=== PATIENT | female | born 1965 | race African-American/Black ===

== ENCOUNTER 2018-02-22 02:31 | Inpatient (IN) | payer BC, OTHER, SELFPAY ==
[2018-02-22 04:59] LABS: Anion Gap 18 mmol/L (10-20); BUN (Urea Nitrogen) 69 mg/dL (9.8-20.1); Calc. Creatinine Clearance 0 mL/min (70-130); Calcium 9.1 mg/dL (7.8-10.44); Carbon Dioxide 11 mmol/L (22-29); Chloride 111 mmol/L (98-107); Estimated GFR-MDRD 17; Glucose 133 mg/dL (70-105); Potassium 4.2 mmol/L (3.5-5.1); Sodium 136 mmol/L (136-145)
[2018-02-22] MEDS ORDERED: Sodium Chloride 0.9% 1,000 ML IV SCH (05:15)
[2018-02-22] MEDS ORDERED: Dextrose 50% Abboject 50 ML SYRINGE SLOW IVP PRN (05:25)
[2018-02-22] MEDS ORDERED: Dextrose 5% in Water 1,000 ML IV PRN (05:25)
--- NOTE | 2018-02-22 06:12 | HP ---
PRIMARY CARE PHYSICIAN: Dr. Piper Cho. HISTORY OF PRESENT ILLNESS: Patient is a very pleasant 52-year-old female who was transferred from [facility] for right leg pain and lower back pain. The patient has a history of cirrhosis of un known etiology. I do not have her medical records. 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 Patient told me that she went to [facility] urgent care where she was given ibuprofen and was discharged home. Patient stated that this happen ed about a week or week and a half ago. The patient comes in today with worsening pain to her lower back. The patient states that her pain is on her left hip which radiates down her right leg and the pain stays above the knee. She denies of any fevers or chills. Patient states that she denies any i ssues with urinating. She has been taking her ibuprofen, her STEVE and her metformin at home. PAST MEDICAL HISTORY: History of cirrhosis, history of diabetes type 2 and hypertension. PAST SURGICAL HISTORY: She had a cholecystectomy. SOCIAL HISTORY: She denies any alcohol use, but continues to smoke a pack a day. Denies any drug us e either. FAMILY HISTORY: Denies any family history of heart disease or hypertension. PHYSICAL EXAMINATION. VITAL SIGNS: Temperature of 97.8, 100% room air, 87 pulse and 184/79. GENERAL: She is awake, alert, oriented x3, does not appear in distress. CARDIOVASCULAR: S1, S2 present. No murmurs, rubs or gallops. LUNGS: Clear to auscultation. No rhonchi or wheezes noted. ABDOMEN: Obese. Bowel sounds are present x2. No pain upon palpation. MUSCULOSKELETAL: Lower back, patient has no pain to palpation around the spine in the paraspinal are a; however, she does have palpation. She does have pain on palpation of her left hip. The patient s tates that her pain shoots down her right leg above the knee. No pedal pulses are present x2. LOWER EXTREMITIES: No edema noted. ALLERGIES: She has no known drug allergies. MEDICATIONS: Amlodipine/benazepril 10-20 mg daily, atorvastatin 20 mg daily, carvedilol 6.25 mg p.o. b.i.d., glimepiride 1 mg p.o. daily, hydrochlorothiazide 12.5 mg daily, metformin 500 mg daily, and it states prednisone on her list, but I am not sure if she is taking it and ursodiol 500 mg p.o. ivis miranda. They will have to clarify this medication list and patient does not recall and I have taken this list of the ER. LABORATORY DATA AND IMAGING DATA: Are as following; her CBC with WBCs of 6.7, hemoglobin of 9.2, hem atocrit of 28.5, and platelets of 280. Chemistry: Sodium of 136, potassium of 4.2, bicarbonate of 1 1, BUN of 16, and creatinine of 3.50, unknown baseline. ASSESSMENT AND PLAN: The patient is a very pleasant 52-year-old female who presents to the hospital with lower back pain and right-sided pain. 1. Acute kidney injury. Patient's creatinine is 3.5, unknown baseline. Given the patient's history of cirrhosis, though this is pretty significant, I am not sure if this is secondary to NSAID use ml karina prerenal. We will start the patient on some gentle hydration and we will get a kidney ultrasound . We will also consult Nephrology. May start patient on sodium bicarbonate since her CO2 was 11. W e will also check feurea since patient is on hydrochlorothiazide. 2. Lower back pain and right-sided leg pain. We will get a lumbar x-ray also right and left hip tl n, so we will await x-rays results and for now we will give her some pain medication that does not lau ve any NSAIDs. 3. Cirrhosis. We will continue patient's lactulose. 4. Hypertension. We will hold any kind of STEVE or any other blood pressure medications for now. 5. Diabetes. We will start the patient on a sliding scale insulin and we will check Accu-Cheks a.c. and at bedtime. 6. Deep venous thrombosis prophylaxis. We will put patient on subcu heparin for now.
--- NOTE | 2018-02-22 07:51 | RAD ---
LUMBAR SPINE 3 VIEWS: History A 52-year-old female with a history of low back pain. Transitional vertebra at the lumbosacral level. There is generalized disk-osteophytosis and facet ar throsis. No evidence for acute fracture or dislocation. IMPRESSION: Generalized spondylolysis. Bone demineralization. No acute fracture. POS: YANY
--- NOTE | 2018-02-22 07:58 | RAD ---
BILATERAL HIPS 2 VIEWS EACH: HISTORY: A 52-year-old female with a history of bilateral hip pain. FINDINGS: AP and frogleg lateral views of right and left hips are performed. Degenerative changes of both hip joints. No acute fracture or dislocation. IMPRESSION: Bone demineralization and degenerative changes involving both hips. No fracture or dislocation. POS: JEAN CARLOS
[2018-02-22] MEDS ORDERED: Heparin 5,000 UNITS/ML VIAL ONE (08:51)
[2018-02-22] MEDS ORDERED: oxyCODONE 5 MG TAB PO SCH (09:15)
--- NOTE | 2018-02-22 10:52 | CON ---
DATE OF CONSULTATION: 02/22/2018 REFERRING PHYSICIAN: Dr. Moore REASON FOR CONSULTATION: Acute kidney injury. REASON FOR ADMISSION: Right leg pain, lower back pain. HISTORY OF PRESENT ILLNESS: This is a 52 year female with history of cirrhosis, type 2 diabetes, CKD , came to the hospital with the above complaints and was found to have elevated creatinine of 3.5. H er last creatinine was in 2016 0.8. Baseline creatinine is not known. 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 No fever or chills. No nausea, vomiting. The patient is feeling slightly better. She is complaining of abdominal distention. PAST MEDICAL HISTORY: Cirrhosis, hepatitis, hypertension, CKD. PAST SURGICAL HISTORY: Cholecystectomy. MEDICATIONS: Amlodipine, benazepril, atorvastatin, carvedilol, glimepiride, hydrochlorothiazide. ALLERGIES: No known drug allergies. SOCIAL HISTORY: No alcohol, illicit drug abuse. She currently smokes. FAMILY HISTORY: No history of kidney disease. REVIEW OF SYSTEMS: The following complete review of systems was negative, unless otherwise mentioned in the HPI or below: Constitutional: Weight loss or gain, ability to conduct usual activities. Skin: Rash, itching. Eyes: Double vision, pain. ENT/Mouth: Nose bleeding, neck stiffness, pain, tenderness. Cardiovascular: Palpitations, dyspnea on exertion, orthopnea. Respiratory: Shortness of breath, wheezing, cough, hemoptysis, fever or night sweats. Gastrointestinal: Poor appetite, abdominal pain, heartburn, nausea, vomiting, constipation, or diarrhea. Genitourinary: Urgency, frequency, dysuria, nocturia. Musculoskeletal: Pain, swelling. Neurologic/Psychiatric: Anxiety, depression. Allergy/Immunologic: Skin rash, bleeding tendency. PHYSICAL EXAMINATION: GENERAL: This is a well-built female in no apparent distress. VITAL SIGNS: Temperature 97.8, pulse 87, respiratory 18, blood pressure 184/79 on arrival. HEENT: Atraumatic, normocephalic. Oral mucosa is moist. NECK: Supple, no masses. HEART: S1, S2 heard. Rate and rhythm regular. RESPIRATORY: Clear. GASTROINTESTINAL: Soft, distended. MUSCULOSKELETAL: 1+ edema. DERMATOLOGIC: No skin rash. NEUROLOGIC: Alert, awake. NEUROLOGIC: Moving all the extremities. PSYCHIATRIC: Mood and affect normal. LABORATORY AND X-RAY FINDINGS: Potassium is 4.2, BUN 69, creatinine 3.5. BNP is 1067. ASSESSMENT AND PLAN: 1. Acute kidney injury, unclear cause, most likely volume depletion. Agree with holding the diureti cs and hydration if tolerated. Consider albumin also. Close monitoring of cardiac and respiratory s tatus. 2. Acidosis. Agree with bicarbonate. 3. Edema, controlled. 4. Repeat labs later on today, bicarbonate if not better, consider bicarbonate drip. 5. Hypertension, stable. 6. Cirrhosis. 7. Possible hepatorenal syndrome. We will hydrate with albumin and fluid and we will continue to monitor. Follow up with GI. Thank you for the consult. Avoid nephrotoxins. We will follow.
--- NOTE | 2018-02-22 11:22 | ULT ---
BILATERAL RENAL ULTRASOUND: Date: 02/22/18 HISTORY: Acute renal insufficiency. FINDINGS: The right kidney measures 9.0 cm in length and the left kidney measures 10.3 cm in length. The left r enal pelvis is dilated. Bilateral ureteral jets are present. The left-sided jet is weaker. No renal m asses are identified. The pre-void bladder volume measures 364 mL. Incidental note is made of free fluid in Morison's pouch. IMPRESSION: Dilated left renal pelvis. POS: JEAN CARLOS
[2018-02-22 12:28] LABS: Creatinine, Urine 70.81 mg/dL (47-110)
[2018-02-22] MEDS: Albumin 25% 25 GM/100 ML BOT IVPB SCH ×3 (12:28→23:16)
[2018-02-22] MEDS: Heparin 5,000 UNITS/ML VIAL SC SCH ×2 (12:28→15:02)
[2018-02-22] MEDS ORDERED: Nitroglycerin 2% Ointment 1 INCH/1 GM Packet TOP PRN (13:13)
[2018-02-22] MEDS ORDERED: hydrALAZINE 20 MG/ML VIAL SLOW IVP PRN (13:13)
[2018-02-22] MEDS ORDERED: Labetalol HCl 100 MG/20 ML VIAL SLOW IVP PRN (13:13)
[2018-02-22] MEDS: cloNIDine 0.1 MG TAB PO PRN (13:28)
[2018-02-22 14:48] LABS: Anion Gap 20 mmol/L (10-20); BUN (Urea Nitrogen) 74 mg/dL (9.8-20.1); Calc. Creatinine Clearance 24 mL/min (70-130); Calcium 8.9 mg/dL (7.8-10.44); Chloride 110 mmol/L (98-107); Estimated GFR-MDRD 15; Glucose 153 mg/dL (70-105); Sodium 135 mmol/L (136-145)
[2018-02-22 14:53] LABS: Carbon Dioxide 9 mmol/L (22-29)
[2018-02-22 15:33] LABS: pH, Arterial 7.29 (7.35-7.45)
[2018-02-22 15:34] LABS: Actual Bicarbonate (HCO3a) 10.9 mEq/L (22-26); Base Excess (BEa) -14.1 mEq/L (0 (+/-) 2.5); CO2 Tension 22.8 mmHg (35.0-45.0); Hematocrit-ABG 26.5 % (36.0-47.0); O2 Tension (PaO2) 103.9 mmHg (80.0-100.0)
[2018-02-22 15:36] LABS: Calcium, Ionized 1.2 mmol/L (1.12-1.30); Puncture Site RR
[2018-02-22] MEDS ORDERED: Sodium Bicarb 50 MEQ/50 ML Abboject 8.4% SYRINGE IVP SCH (15:45)
[2018-02-22 16:02] LABS: #Eosinphils 0.1 thou/uL (0.0-0.7); #Lymphocytes 0.8 thou/uL (1.20-3.40); #Monocytes 0.7 thou/uL (0.11-0.59); #Neutrophils 4.4 thou/uL (1.40-6.50); %Basophils 0.2 % (0.0-1.0); %Eosinophils 0.9 % (0.0-10.0); %Lymphocytes 13.2 % (21.0-51.0); %Monocytes 11.5 % (0.0-10.0); %Neutrophils 74.2 % (42.0-75.0); Hemoglobin 8.5 g/dL (12.0-16.0); Mean Corpuscular HGB CONC 34.2 g/dL (32.0-36.0); Mean Corpuscular Hemoglobin 33.3 pg (27.0-31.0); Mean Corpuscular Volume 97.3 fl (81.0-99.0); Mean Platelet Volume 9.8 fL (7.4-10.4); Platelet Count 178 thou/uL (130-400); RBC Distribution Width 17.1 % (11.5-14.5); Red Blood Cell (RBC) Count 2.55 mill/uL (4.20-5.40)
[2018-02-22 16:07] LABS: INR-International Normal Ratio 1.1; PTT 31.4 SEC (22.9-36.1); Prothrombin Time 14.6 SEC (12.0-14.7)
[2018-02-22 16:18] LABS: Lactic Acid 1.1 mmol/L (0.5-2.2)
[2018-02-22 16:22] LABS: ALT (SGPT) 60 U/L (8-55); AST (SGOT) 96 U/L (5-34); Albumin 3.1 g/dL (3.5-5.0); Alkaline Phosphatase 317 U/L (40-150); Bilirubin, Direct 9.4 mg/dL (0.1-0.3); Bilirubin, Total 11.8 mg/dL (0.2-1.2); Protein, Total 6.8 g/dL (6.0-8.3)
[2018-02-22] MEDS: Sodium Bicarbonate 150 MEQ in Dextrose 5% in Water 1,000 ML IV SCH (17:27)
[2018-02-22] MEDS: Rifaximin 550 MG TAB PO SCH (20:44)
[2018-02-22] MEDS: oxyCODONE 5 MG TAB PO PRN (21:12)
[2018-02-23] MEDS: Albumin 25% 25 GM/100 ML BOT IVPB SCH ×2 (04:00→10:47)
[2018-02-23] MEDS: Sodium Bicarbonate 150 MEQ in Dextrose 5% in Water 1,000 ML IV SCH ×3 (04:37→22:01)
--- NOTE | 2018-02-23 05:20 | CON ---
DATE OF CONSULTATION: 02/22/2018 REASON FOR CONSULTATION: Possible hepatorenal syndrome. HISTORY OF PRESENT ILLNESS: Ms. Chen is a 52-year-old female with a history of liver disease of u nclear etiology. She initially presented to Dr. Parks in 2013 with elevated alkaline phosphatase. Se rologic studies were nondiagnostic with a very mildly elevated antismooth muscle antibody. She had a n elevated GGT. Ultimately, she increased her bilirubin to about 11 or 12 and then underwent a biops y that did show some mild cholestasis, mild inflammation, and possibly collapse of inflammation aroun d the biliary tract. It was felt that this was possibly toxic and a statin and glimepiride were held . She was placed on ursodiol and her bilirubin dropped to 7 with significant improvement in her citlaly line phosphatase, dropping from 400-500 range to 200-300 range. That was back last summer in 2016. She was to follow up a few weeks later, but did not return. Now, she comes in after presented to an outside facility with complaints of back pain and right leg pain that seemed to be sciatic pain with a creatinine of 3.5. Her last creatinine in 2017 was 0.8. The patient was also found to be confused , have a pneumonia of over 100. She is not really recall anything about liver disease and denies williamso wing about a diagnosis of cirrhosis, but she seems confused. She has had no fever or chills. PAST MEDICAL HISTORY: Poorly defined hepatitis with possible early cirrhosis, hypertension. PAST SURGICAL HISTORY: Cholecystectomy. MEDICATIONS: Amlodipine, benazepril, atorvastatin, carvedilol, glimepiride, and hydrochlorothiazide, those were in the remote past. It is unclear if she was taking those on admission. PRESENT MEDICATIONS: Albumin 25 mg IV q.6 hours, D5 normal saline, insulin sliding scale, labetalol 10 q.4 hours, lactulose 20 mg p.o. b.i.d., Nitro-Bid p.r.n., oxycodone p.r.n., sodium bicarbonate 150 mEq and dextrose at 100 an hour. REVIEW OF SYSTEMS: Negative for shortness breath, chest pain, dyspnea on exertion. She has no nause a, vomiting, diarrhea. She was taking 7-8 ibuprofen daily for right back sciatic like pain in the sa croiliac area, radiating down her right leg. PHYSICAL EXAMINATION: VITAL SIGNS: Temperature is 98, pulse 88, blood pressure is 169/72. LUNGS: Clear. HEART: Regular rate and rhythm without clicks or murmurs. ABDOMEN: Soft, nontender. There is no palpable hepatosplenomegaly. The slight protuberance of the abdomen is unclear if there is any shifting dullness or fluid and it is really difficult to tell if she has a trait. EXTREMITIES: She has 1+ edema. LABORATORY STUDIES: Sodium 135, potassium 4, chloride 110, bicarbonate 9, BUN 74, creatinine 3.78, g lucose 133, bilirubin 11, direct 9. AST and ALT are 96 and 60, alkaline phosphatase 317, albumin 3.1 , protein 6.8. ASSESSMENT: 1. An ill-defined underlying liver disease with biopsy is nondiagnostic suggestive last year of poss ible toxic effect. Her statin and glimepiride were held at that time, it is unclear if she is taking that now. She does not know. She was placed on ursodiol that had some improvement in her numbers, but not resolution. She did not follow up at that time. Now, she is back with a bilirubin of 11, al kaline phosphatase of 317 and cholestatic pattern. 2. She has an abrupt increase in creatinine. It is unclear if this is related to underlying liver d isease or heavy use of NSAIDs or both. RECOMMENDATIONS: 1. Ulcer prophylaxis with PPI in light of heavy NSAID use. 2. Agree with IV fluids and albumin. 3. Agree with lactulose for elevated ammonia. 4. We will start Xifaxan p.o. 5. We will reorder antismooth muscle antibody, antimitochondrial antibody and follow along with you.
[2018-02-23 06:31] LABS: ALT (SGPT) 56 U/L (8-55); AST (SGOT) 86 U/L (5-34); Albumin 3.4 g/dL (3.5-5.0); Alkaline Phosphatase 245 U/L (40-150); Anion Gap 18 mmol/L (10-20); BUN (Urea Nitrogen) 86 mg/dL (9.8-20.1); Calc. Creatinine Clearance 23 mL/min (70-130); Calcium 8.7 mg/dL (7.8-10.44); Carbon Dioxide 13 mmol/L (22-29); Chloride 108 mmol/L (98-107); Estimated GFR-MDRD 14; Globulin 3.2 g/dL (2.4-3.5); Glucose 121 mg/dL (70-105); Magnesium 2.5 mg/dL (1.6-2.6); Potassium 3.8 mmol/L (3.5-5.1); Protein, Total 6.6 g/dL (6.0-8.3); Sodium 135 mmol/L (136-145)
[2018-02-23 06:42] LABS: #Eosinphils 0.1 thou/uL (0.0-0.7); #Lymphocytes 0.5 thou/uL (1.20-3.40); #Monocytes 0.4 thou/uL (0.11-0.59); %Basophils 0.2 % (0.0-1.0); %Eosinophils 1.5 % (0.0-10.0); %Lymphocytes 13.3 % (21.0-51.0); %Monocytes 10.5 % (0.0-10.0); %Neutrophils 74.6 % (42.0-75.0); Band 5 % (5-11); Lymphocytes 16 % (21-51); MDiff Complete? YES; Mean Corpuscular HGB CONC 33.7 g/dL (32.0-36.0); Mean Corpuscular Hemoglobin 32.3 pg (27.0-31.0); Mean Corpuscular Volume 95.8 fl (81.0-99.0); Mean Platelet Volume 9.7 fL (7.4-10.4); Monocytes 14 % (0-10); Neutrophil 65 % (42-75); Platelet Count 156 thou/uL (130-400); RBC Distribution Width 16.8 % (11.5-14.5); Red Blood Cell (RBC) Count 2.15 mill/uL (4.20-5.40)
[2018-02-23] MEDS: oxyCODONE 5 MG TAB PO PRN ×4 (08:27→23:37)
[2018-02-23] MEDS: Rifaximin 550 MG TAB PO SCH ×2 (08:36→19:59)
--- NOTE | 2018-02-23 09:24 | PRG ---
Patient Name: BRIGITTE BARDALES Date of service: 02/23/2018 Subjective: Patient was seen and examined at bedside and overnight events noted. Patient denies any shortness of breath or chest pain or palpitation. No history of nausea or vomiting or diarrhea or fever or chills or cramps. Objective: General: This is a well-built female in no apparent distress. Vital signs: Temperature 96, pulse 87, respirations 18, blood pressure 157/63. HEENT: Atraumatic, normocephalic. Oral mucosa is moist. Neck: Supple. Cardiovascular: S1 S2 heard. Rate and rhythm regular. Respiratory: Crackles. Gastrointestinal: Abdomen is soft. Musculoskeletal: No tenderness. +1 edema. Dermatologic: No skin rash. Neurologic: Alert and awake and oriented X3. No focal neurologic deficits. Moving all the extremit ies. Psychiatric: Mood and affect normal. LABORATORY DATA: Potassium is 3.9, BUN 36, creatinine 3.9. AST is 86, ALT 66, albumin is 3.4, hemog lobin is 7.7. ASSESSMENT AND PLAN: 1. Acute kidney injury most likely hepatorenal. Patient did not respond to IV hydration. We will c ontinue on albumin. I agree with a GI evaluation. Consider octreotide drip if okay with GI. We phillip l continue albumin and hold diuretics. 2. Metabolic acidosis, on bicarbonate drip. Patient not able to tolerate IV fluids. If not, we phillip l start on oral bicarbonate. 3. Edema, controlled. 4. Hypertension. 5. History of cirrhosis. 6. Hepatorenal syndrome. Follow with GI. 7. Anemia, rule out bleed. Prognosis is guarded. Start on bicarbonate drip. Continue albumin. Follow with GI for further eval uation and recommendations. We will continue to monitor. No acute indication for dialysis.
[2018-02-23 11:53] LABS: Hemoglobin 7.4 g/dL (12.0-16.0)
--- NOTE | 2018-02-23 13:13 | PRG ---
DATE OF SERVICE: 02/23/2018 GI INPATIENT DAILY PROGRESS NOTE SUBJECTIVE: Mrs. Chen appears to be doing well. She seems mentally clear today. She is not comp laining of any abdominal pain, nausea, or vomiting. Creatinine trended up from 3.5-3.99. She clarif ies with me that she was taking quite a bit of ibuprofen. She estimates she went through an entire b ottle of ibuprofen within 3 days just prior to presentation. She also clarifies with me that she was not taking her ursodiol medication for the past year since I saw her last and she failed to follow u p. OBJECTIVE: VITAL SIGNS: Temperature 98.7, pulse 87, blood pressure 163/73, 98% oxygen saturation on room air. GENERAL: No acute distress. EYES: There is some scleral icterus. HEART: Regular rate and rhythm. LUNGS: Clear to auscultation bilaterally. ABDOMEN: Nondistended and nontender to palpation. EXTREMITIES: No peripheral edema. LABORATORY STUDIES: Sodium 135, potassium 3.8, BUN 86, creatinine 3.99, total bilirubin 10.0, alkali ne phosphatase 245, AST 86, ALT 56, and albumin 3.4. Urine sodium 45. Urine creatinine 70.8. INR o nly 1.1, hemoglobin 7.4, WBC 4.0, and platelets 156. ASSESSMENT AND PLAN: 1. Chronic hepatitis, indeterminate. I reviewed her extensive workup from last year. This included a liver biopsy. The impression at that time was drug or toxin reaction versus a possible primary bi liary cirrhosis. She had significant improvement in total bilirubin and alkaline phosphatase at that time on ursodiol, but failed to follow up after that. Note that she had grade 3-4 activity and stag e III fibrosis on the liver biopsy one year ago. 2. Hepatic encephalopathy. Admission ammonia was elevated to 100. She appears to have had improvem ent in her mental status over the past day on lactulose and rifaximin. Would continue both of these medications going forward. 3. Acute kidney injury. Appreciate Nephrology assistance. Renal function has not responded to flui d challenge. Unclear whether this really represents hepatorenal syndrome. Of note, her urine sodium is 45. I suspect the quite heavy ibuprofen use just preceding admission is playing a role here. I think it would be reasonable to start octreotide IV at this time. We will also start her back on ursodiol and update liver imaging with abdominal ultrasound. GI will continue to follow along.
[2018-02-23] MEDS: Octreotide Acetate 1,250 MCG in Sodium Chloride 0.9% 250 ML 250 ML IVPB SCH (14:32)
[2018-02-23] MEDS: Sodium Bicarbonate Tab 325 MG TAB PO SCH ×4 (14:33→22:01)
--- NOTE | 2018-02-23 15:55 | ULT ---
COMPLETE ABDOMEN ULTRASOUND: INDICATIONS: History of chronic hepatitis. FINDINGS: There is coarse echotexture of the liver with nodularity, consistent with changes of cirrhosis. The liver is enlarged, measuring 21.9 cm. no focal hepatic lesion is evident. The spleen is enlarged, measuring 17.4 cm. The gallbladder is surgically absent. No sonographic Thurston sign report. The common bile duct measures 5.3 mm. The pancreas is obscured by overlying bowel gas. The right kidney measures 9.6 x 5.5 x 5 cm. The left kidney measures 9.1 x 4.7 x 5 cm. No focal gretchen al lesion or hydronephrosis is evident. There is mild ascites present. IMPRESSION: 1. Findings of cirrhosis with mild portal hypertension. 2. Cholecystectomy. 3. Mild ascites. POS: [facility]
[2018-02-23] MEDS: cloNIDine 0.1 MG TAB PO PRN (18:20)
[2018-02-23] MEDS: Ursodiol 300 MG CAP PO SCH (18:20)
--- NOTE | 2018-02-23 18:50 | RAD ---
ONE VIEW ABDOMEN: 02/23/18 HISTORY: Distention. COMPARISON: None. FINDINGS: Surgical clip in the right upper quadrant compatible with cholecystectomy. Scattered fecal material i n a nondistended, nondilated colon. No evidence of small bowel distention. Note, the bowel loops appe ar to be somewhat centered in the abdomen. If there is concern for acute abdominal pathology, conside r CT with oral and IV contrast. No evidence of pneumoperitoneum in supine projection. IMPRESSION: 1. Nonspecific bowel gas pattern. If there is concern for acute abdominal pathology, consider fu rther evaluation with CT. 2. Slight displacement of bowel loops may be due to ascites. Abdomen ultrasound performed earlie r today demonstrates a mild amount of ascites. POS: [facility]
[2018-02-23 19:16] LABS: Creatinine, Urine 69.47 mg/dL (47-110)
--- NOTE | 2018-02-23 22:14 | PDOC.PN ---
- Objective Resuscitation Status: Resuscitation Status FULL:Full Resuscitation Vital Signs & Weight: Vital Signs (12 hours) Temp Pulse Resp BP Pulse Ox 02/23/18 20:00 98.0 F 99 20 94 L 02/23/18 19:55 171/79 H 02/23/18 19:20 98.0 F 99 20 191/88 H 94 L 02/23/18 16:39 98.7 F 95 18 175/79 H 99 02/23/18 12:00 98.7 F 87 18 163/73 H 98 Weight Weight 197 lb I&O: 02/22/18 02/23/18 02/24/18 06:59 06:59 06:59 Intake Total 1473 Output Total 850 Balance 623 Result Diagrams: 02/23/18 11:40 02/23/18 05:21 Additional Labs: Accuchecks 02/23/18 02/23/18 02/23/18 20:51 16:11 11:06 POC Glucose 200 H 225 H 190 H 02/23/18 02/22/18 06:50 21:04 POC Glucose 130 H 214 H Dx/Plan - Plan * .
[2018-02-23] MEDS ORDERED: hydrOXYzine 25 MG TAB PO SCH (23:00)
[2018-02-24 07:55] LABS: Anion Gap 19 mmol/L (10-20); BUN (Urea Nitrogen) 78 mg/dL (9.8-20.1); Calc. Creatinine Clearance 25 mL/min (70-130); Calcium 8.8 mg/dL (7.8-10.44); Carbon Dioxide 17 mmol/L (22-29); Chloride 104 mmol/L (98-107); Estimated GFR-MDRD 16; Glucose 158 mg/dL (70-105); Potassium 3.7 mmol/L (3.5-5.1); Sodium 136 mmol/L (136-145)
[2018-02-24 07:59] LABS: ALT (SGPT) 59 U/L (8-55); AST (SGOT) 94 U/L (5-34); Albumin 3.3 g/dL (3.5-5.0); Alkaline Phosphatase 267 U/L (40-150); Bilirubin, Direct 8.7 mg/dL (0.1-0.3); Bilirubin, Total 10.9 mg/dL (0.2-1.2); Protein, Total 6.5 g/dL (6.0-8.3)
[2018-02-24] MEDS ORDERED: Cyclobenzaprine 10 MG TAB PO SCH (08:30)
[2018-02-24] MEDS: Ursodiol 300 MG CAP PO SCH ×3 (08:33→16:49)
[2018-02-24] MEDS: Sodium Bicarbonate Tab 325 MG TAB PO SCH ×3 (08:33→21:15)
[2018-02-24] MEDS: Lidocaine 5% Patch TD SCH (08:33)
[2018-02-24] MEDS: Rifaximin 550 MG TAB PO SCH ×2 (08:33→21:15)
[2018-02-24] MEDS: Sodium Bicarbonate 150 MEQ in Dextrose 5% in Water 1,000 ML IV SCH (08:34)
[2018-02-24] MEDS ORDERED: Morphine 4 MG/ML VIAL SLOW IVP SCH (09:00)
--- NOTE | 2018-02-24 11:20 | PRG ---
DATE OF SERVICE: 02/24/2018 SUBJECTIVE: Patient was seen and examined at bedside and overnight events noted. Patient denies shortness of breath or cramps or chest pain or palpitation. No Nausea or vomiting or diarrhea or fever or chills. OBJECTIVE: GENERAL: This is a well-built female complaining of back pain. VITAL SIGNS: Temperature 98.7, pulse 84, respiratory 18, blood pressure 176/79. ABDOMEN: Abdomen is distended. MUSCULOSKELETAL: 1+ edema. HEENT: Atraumatic normocephalic Neck: Supple Cardiovascular: S1S2 heard, Rate and rhythm regular Respiratory: Clear to auscultation Gastrointestinal: Abdomen is soft Dermatologic : No skin rash Neurologic: Alert and awake and oriented X3 No focal neurologic deficits. Moving all the extremities. Psychiatric: Mood and affect normal LABORATORY DATA: Potassium 3.7, BUN 70, creatinine 3.53. ASSESSMENT AND PLAN: 1. Acute kidney injury, most likely hepatorenal. Urine sodium is not helpful given the patient was on diuretics preadmission. I will stop IV hydration. We will check a urinalysis and rule out urinary tract infection. Continue albumin. Seems like the patient is responding to octreotide. 2. Metabolic acidosis. Continue on oral bicarbonate and stop bicarbonate drip. 3. Edema, controlled. 4. Hypertension. 5. History of cirrhosis, possible hepatorenal syndrome. I appreciate GI recommendations. 6. Anemia, most likely from cirrhosis. Follow up with GI. Plan is to continue current management. We will stop IV fluids. Continue oral bicarbonate and will follow. MTDD
[2018-02-24] MEDS: cloNIDine 0.1 MG TAB PO PRN (12:05)
[2018-02-24] MEDS: HumaLOG 300 UNITS/3 ML VIAL SC PRN ×2 (12:05→16:58)
[2018-02-24 12:14] LABS: ANA Symphony (Qualitative) Negative (Negative); EliA Vaculitis New Method **** NEW METHOD ****; Mitochondrial Ab 0.5 U/mL (<4 Negative); dsDNA IgG Antibody 0.7 IU/mL (<10 Negative)
[2018-02-24 12:44] LABS: Bilirubin Moderate (Negative); Blood, Urine Moderate (Negative); Clarity CLEAR (Clear); Glucose, Urine (Dipstick) Negative (Negative); Leukocyte Moderate (Negative); Nitrite Negative (Negative); Protein, Urine (Dipstick) 30 mg/dL (Neg-Trace); Specific Gravity, Urine 1.016 (1.002-1.036); pH, Urine 5.5 (5.0-9.0)
[2018-02-24 12:47] LABS: Bacteria/HPF 3+ HPF (None Seen); Hyaline Casts/LPF 0-3 HYALINE CAST LPF (0-3 Hyaline); RBC/HPF 21-50 HPF (0-3); Squamous Epithelial 0-3 HPF (0-3)
--- NOTE | 2018-02-24 16:20 | MRI ---
MRI LUMBAR SPINE WITHOUT CONTRAST: HISTORY: Severe back and bilateral hip pain. COMPARISON: None. TECHNIQUE: MRI lumbar spine is performed without intravenous Gadolinium administration. Multisequential, multip lanar imaging was performed. FINDINGS: Appropriate T1 marrow signal intensity of the cervical vertebrae. Cervical spine vertebral body heig ht is maintained. No fracture. No significant STIR hyperintensity to suggest vertebral body edema o r ligamentous injury. Limited evaluation of the solid organs and retroperitoneal structures. Grossly, no abnormality. Conus medullaris appears to terminate at the T12 level. T11-T12: No high-grade central canal stenosis. Bilaterally, neural foramen are patent. T12-L1: There appears to be a central disk bulge that is better appreciated on the axial images. Th ere is mild central canal stenosis. Neural foramen are patent. L1-L2: Adequate disk hydration. No high-grade central canal stenosis or high-grade foraminal narrow ing. L2-L3: Desiccation with mild loss of disk space height. There is a left subarticular disk protrusio n. There is mild central canal stenosis. Mild to moderate right and moderate left foraminal narrowi ng. Left foraminal narrowing is predominantly due to disk material. L3-L4: Desiccation with mild loss of disk space height. There is a generalized disk bulge that resu lts in mild central canal stenosis. Moderate to severe right and moderate left foraminal narrowing. L4-L5: Adequate disk hydration. No significant posterior disk abnormality. No significant central canal stenosis. Moderate right and severe left foraminal narrowing. L5-S1: Adequate disk hydration. No significant central canal stenosis. Neural foramen are patent. IMPRESSION: Limited evaluation of the lumbar spine due to patient body habitus and patient position. There does appear to be significant foraminal narrowing at multiple levels. Varying degrees of central canal st enosis as described above. POS: [facility]
--- NOTE | 2018-02-24 16:40 | PDOC.PN ---
- Subjective Encounter Start Date: 02/24/18 Encounter Start Time: 08:30 Subjective: pt up in bed complains of pain to her lower back - Objective Resuscitation Status: Resuscitation Status FULL:Full Resuscitation Vital Signs & Weight: Vital Signs (12 hours) Temp Pulse Resp BP Pulse Ox 02/24/18 11:57 98.6 F 91 18 180/78 H 91 L 02/24/18 08:26 98.6 F 91 18 98 02/24/18 08:24 97.9 F 85 18 176/79 H 98 Weight Weight 189 lb I&O: 02/23/18 02/24/18 02/25/18 06:59 06:59 06:59 Intake Total 3073 Output Total 1999 Balance 1073 Result Diagrams: 02/23/18 11:40 02/24/18 03:15 Additional Labs: Accuchecks 02/24/18 02/24/18 02/24/18 16:27 11:08 05:47 POC Glucose 179 H 230 H 173 H 02/23/18 02/23/18 02/23/18 20:51 16:11 11:06 POC Glucose 200 H 225 H 190 H 02/23/18 02/22/18 06:50 21:04 POC Glucose 130 H 214 H Phys Exam - Physical Examination HEENT: PERRLA, moist MMs, sclera anicteric, TM's clear, oral pharynx no lesions , 2+ tonsils Neck: no nodes, no JVD, supple, full ROM Respiratory: no wheezing, no rales, no rhonchi, wheezing present, clear to auscultation bilateral Cardiovascular: RRR, no significant murmur, no rub, gallop, irregular Gastrointestinal: soft, non-tender, no distention, positive bowel sounds soft significant pain on palpaiton of spinal and paraspinal area of her back Dx/Plan - Plan * 1) dheeraj possible hepatorenal syndrome vs NASID vs ATN * 2) cirrhosis * 3) lowr back pain * 4) elevated lft's * * * plan: pt's urine output 2L,creatinine is improving slowly. pt is on octreotide drip, pt on ursodiol. will increase lactulose to tid. pt is having flatulence. pt has sever pain to her lower back. Did try to get pt up but she had too much pain. will get MRI lumbar for evaluation. Hesistant to give pt too much pain meds or anti spasms to avoid over sedation. pt's bili is still high. Review of Systems - Review of Systems Eyes: negative: Pain, Vision Change, Conjunctivae Inflammation, Eyelid Inflammation, Redness, Other ENT: negative: Ear Pain, Ear Discharge, Nose Pain, Nose Discharge, Nose Congestion, Mouth Pain, Mouth Swelling, Throat Pain, Throat Swelling, Other Gastrointestinal: negative: Nausea, Vomiting, Abdominal Pain, Diarrhea, Constipation, Melena, Hematochezia, Other Genitourinary: negative: Dysuria, Frequency, Incontinence, Hematuria, Retention , Other Musculoskeletal: Back Pain - Medications/Allergies Allergies/Adverse Reactions: Allergies Allergy/AdvReac Type Severity Reaction Status Date / Time No Known Drug Allergies Allergy Verified 01/12/17 12:39 Medications: Current Medications Clonidine (Catapres) 0.1 mg PO Q4H PRN PRN Reason: Systolic BP > 180 Last Admin: 02/24/18 12:05 Dose: 0.1 mg Dextrose/Water (Dextrose 50%) 25 gm SLOW IVP PRN PRN PRN Reason: Hypoglycemia Glucagon (Glucagon) 1 mg IM PRN PRN PRN Reason: Hypoglycemia Hydralazine HCl (Apresoline) 10 mg SLOW IVP Q4H PRN PRN Reason: SBP Greater Than 180 Last Admin: 02/22/18 14:55 Dose: 10 mg Dextrose/Water (D5w) 1,000 mls @ 0 mls/hr IV .Q0M PRN; As Directed PRN Reason: Hypoglycemia Octreotide Acetate 1,250 mcg/ (Sodium Chloride) 251.25 mls @ 10.05 mls/hr IVPB INF DARIA PRN Reason: 50 MCG/HR Last Admin: 02/23/18 14:32 Dose: 251.25 mls Insulin Human Lispro (Humalog) 0 units SC .MILD SLIDING SCALE PRN PRN Reason: Mild Correctional Scale Last Admin: 02/24/18 12:05 Dose: 3 unit Labetalol HCl (Normodyne) 10 mg SLOW IVP Q4H PRN PRN Reason: Systolic BP > 180 Lactulose (Lactulose) 30 gm PO TID [facility] Lidocaine (Lidoderm 5% Patch) 1 patch TD DAILY [facility] Last Admin: 02/24/18 08:33 Dose: 1 patch Miscellaneous Medication (Lidocaine Patch Removal) 1 each TOP QPM [facility] Nitroglycerin (Nitro-Bid 2% Ointment) 0.5 inch TOP Q8HR PRN PRN Reason: SBP Greater Than 180 Oxycodone HCl (Oxycodone Ir) 5 mg PO Q4H PRN PRN Reason: Pain 7-10 Last Admin: 02/23/18 23:37 Dose: 5 mg Rifaximin (Xifaxan) 550 mg PO BID [facility] Last Admin: 02/24/18 08:33 Dose: 550 mg Sodium Bicarbonate (Bicarbonate, Sodium) 650 mg PO TID [facility] Last Admin: 02/24/18 08:33 Dose: 650 mg Sodium Chloride (Flush - Normal Saline) 10 ml IVF Q12HR [facility] Last Admin: 02/24/18 08:34 Dose: Not Given Sodium Chloride (Flush - Normal Saline) 10 ml IVF PRN PRN PRN Reason: Saline Flush Ursodiol (Actigal) 300 mg PO TID-[facility] Last Admin: 02/24/18 12:05 Dose: 300 mg
[2018-02-24] MEDS: Octreotide Acetate 1,250 MCG in Sodium Chloride 0.9% 250 ML 250 ML IVPB SCH (17:54)
--- NOTE | 2018-02-24 18:07 | PRG ---
DATE OF SERVICE: 02/24/2018 GI INPATIENT DAILY PROGRESS NOTE SUBJECTIVE: Ms. Chen is feeling okay from a GI standpoint. Her appetite is good. She is tolerat ing her diet. No abdominal pain. Her primary complaint is back pain. She says it hurts to get up a nd walk around. She just came back from the lumbar spine MRI and octreotide drip continues. OBJECTIVE: VITAL SIGNS: Temperature 98.6, pulse 91, blood pressure 180/78, 91% oxygen saturation on room air. GENERAL: No acute distress. HEART: Regular rate and rhythm. LUNGS: Clear to auscultation bilaterally. ABDOMEN: Obese, mild distention, soft, nontender to palpation. Bowel sounds present. EXTREMITIES: 1+ bilateral lower extremity edema. LABORATORY DATA: Sodium 136, potassium 3.7, BUN down to 78, creatinine down to 3.53, total bilirubin 10.9, direct bilirubin 8.7, alkaline phosphatase 267, AST 94, ALT 59. Ammonia 140. Albumin 3.3. A NA negative and antimitochondrial antibody negative. ASSESSMENT AND PLAN: 1. Chronic hepatitis, indeterminate. 2. Cirrhosis, initial decompensation. 3. Hepatic encephalopathy. 4. Acute kidney injury. Renal function appears to be improving after having started octreotide drip . Appreciate Nephrology assistance. This is felt to possibly represent hepatorenal syndrome. Rachael nuing octreotide for now, continue ursodiol as well. Ultrasound imaging demonstrates no liver mass. After resolution of this episode, we will have her reestablish care in the outpatient GI/Liver Clinic . We will likely end up sending her for second Hepatology opinion, due to the indeterminacy of her p rior liver biopsy.
[2018-02-24] MEDS ORDERED: Sodium Chloride 0.9% 10 ML ONE (19:43)
[2018-02-24] MEDS: oxyCODONE 5 MG TAB PO PRN (21:16)
[2018-02-24] MEDS: Lidocaine Patch Removal TOP SCH (21:25)
[2018-02-25] MEDS: cloNIDine 0.1 MG TAB PO PRN (05:05)
[2018-02-25 05:24] LABS: Anion Gap 16 mmol/L (10-20); BUN (Urea Nitrogen) 72 mg/dL (9.8-20.1); Calc. Creatinine Clearance 29 mL/min (70-130); Calcium 9.3 mg/dL (7.8-10.44); Carbon Dioxide 23 mmol/L (22-29); Chloride 103 mmol/L (98-107); Estimated GFR-MDRD 20; Glucose 157 mg/dL (70-105); Potassium 3.6 mmol/L (3.5-5.1); Sodium 138 mmol/L (136-145)
[2018-02-25] MEDS: Sodium Bicarbonate Tab 325 MG TAB PO SCH (08:57)
[2018-02-25] MEDS: hydrALAZINE 25 MG TAB PO SCH ×3 (08:58→20:01)
[2018-02-25] MEDS: Carvedilol 25 MG TAB PO SCH ×2 (08:59→16:57)
[2018-02-25] MEDS: Rifaximin 550 MG TAB PO SCH ×2 (08:59→20:02)
[2018-02-25] MEDS: Ursodiol 300 MG CAP PO SCH ×3 (08:59→16:57)
[2018-02-25] MEDS: Lidocaine 5% Patch TD SCH (08:59)
[2018-02-25] MEDS ORDERED: Carvedilol 6.25 MG TAB PO SCH (09:00)
--- NOTE | 2018-02-25 10:12 | PRG ---
Patient Name: BRIGITTE BARDALES Date of service: 02/25/2018 Subjective: Patient was seen and examined at bedside and overnight events noted. Patient denies any shortness of breath or chest pain or palpitation. No history of nausea or vomiting or diarrhea or fever or chills or cramps. Objective: General: This is a well-built female in no apparent distress. Vital signs: Temperature 97.4, pulse 80, respirations 18, blood pressure 177/83. HEENT: Atraumatic, normocephalic. Oral mucosa is moist. Neck: Supple. Cardiovascular: S1 S2 heard. Rate and rhythm regular. Respiratory: Clear to auscultation. Gastrointestinal: Abdomen is soft. Musculoskeletal: No tenderness. No edema. Dermatologic: No skin rash. Neurologic: Alert and awake and oriented X3. No focal neurologic deficits. Moving all the extremit ies. Psychiatric: Mood and affect normal. LABORATORY DATA: Potassium is 3.6, BUN 72, creatinine is 3.03. ASSESSMENT AND PLAN: 1. Acute kidney injury, most likely hepatorenal responding to octreotide. Continue on octreotide pe r GI. 2. Hepatorenal syndrome. 3. Metabolic acidosis, better. We will stop oral bicarbonate. 4. Edema, controlled. 5. Hypertension. 6. History of cirrhosis. Follow up with GI. 7. Anemia. Follow with GI. Continue with GI. Continue octreotide. We will monitor renal function. Avoid nephrotoxins at this point.
[2018-02-25] MEDS: HumaLOG 300 UNITS/3 ML VIAL SC PRN ×2 (11:39→21:06)
--- NOTE | 2018-02-25 11:55 | PQF ---
CLINICAL DOCUMENTATION IMPROVEMENT CLARIFICATION FORM: ICD-10 Updated PLEASE DO AN ADDENDUM TO THE PROGRESS NOTE WITH ANY DOCUMENTATION UPDATES OR ADDITIONS AND CARRY THROUGH TO DC SUMMARY. THANK YOU. DATE: 02/25/18 ATTN: Dr. Moore Please exercise your independent, professional judgment in responding to the clarification form. Clinical indicators are provided on the bottom of this form for your review Please check appropriate box(s): [ x ] Encephalopathy: Type: [ x ] Acute [ ] Subacute [ ] Chronic Etiology: [ ] Hepatic w/o Coma [ ] Hepatic with Coma [ ] Drug induced: [ ] Other (please specify) [ ] Other diagnosis [ ] Unable to determine In addition, please specify: Present on Admission (POA): [ x] Yes [ ] No [ ] Unable to determine For continuity of documentation, please document condition throughout progress notes and discharge summary. Thank You. CLINICAL INDICATORS - SIGNS / SYMPTOMS / LABS GI CONSULT 02/22: PT WAS ALSO FOUND TO BE CONFUSED. GI PN 02/23: HEPATIC ENCEPHALOPATHY. ADMISSION AMMONIA WAS ELEVATED TO 100. SHE APPEARS TO HAVE HAD IMPROVEMENT IN HER MENTAL STATUS OVER THE PAST DAY ON LACTULOSE & RIFAXIMIN. GI PN 02/24/18: HEPATIC ENCEPHALOPATHY RISKS: H&P: HX OF CIRRHOSIS, HX OF DM2. TREATMENT: CPOE 02/22: RIFAXIMIN 550 MG PO BID CPOE 02/22: LACTULOSE 20 GM PO BID. DC'D 02/24 CPOE 02/24: LACTULOSE 30 GM PO TID Thank you, Yolanda (This form is maintained as a part of the permanent medical record) 2015 [employer]. All Rights Reserved Yolanda Anthony RN, BSN [email or web address] Office: [phone] [facility]
[2018-02-25] MEDS: diphenhydrAMINE 25 MG CAP PO PRN ×2 (13:04→21:07)
[2018-02-25] MEDS: Cholestyramine/Aspartame 4 gm Packet PO SCH ×2 (13:04→22:55)
--- NOTE | 2018-02-25 13:39 | PDOC.PN ---
- Subjective Encounter Start Date: 02/25/18 Encounter Start Time: 12:45 Subjective: pt up in bed no complains - Objective Resuscitation Status: Resuscitation Status FULL:Full Resuscitation Vital Signs & Weight: Vital Signs (12 hours) Temp Pulse Resp BP BP Pulse Ox 02/25/18 11:44 98.0 F 72 16 109/58 L 96 02/25/18 08:58 82 177/83 H 02/25/18 08:00 97.4 F L 82 16 98 02/25/18 07:15 97.4 F L 82 16 177/83 H 96 02/25/18 05:05 183/83 H 02/25/18 04:00 98.4 F 86 16 181/87 H 96 Weight Weight 193 lb 12.8 oz I&O: 02/24/18 02/25/18 02/26/18 06:59 06:59 06:59 Intake Total 3073 939.3 Output Total 1999 750 275 Balance 1073 189.3 -275 Result Diagrams: 02/23/18 11:40 02/25/18 04:46 Additional Labs: Accuchecks 02/25/18 02/25/18 02/24/18 11:11 05:52 20:52 POC Glucose 249 H 171 H 130 H 02/24/18 16:27 POC Glucose 179 H Phys Exam - Physical Examination HEENT: PERRLA, moist MMs, sclera anicteric, TM's clear, oral pharynx no lesions , 2+ tonsils Neck: no nodes, no JVD, supple, full ROM Respiratory: no wheezing, no rales, no rhonchi, wheezing present, clear to auscultation bilateral Cardiovascular: RRR, no significant murmur, no rub, gallop, irregular Gastrointestinal: soft, non-tender, no distention, positive bowel sounds Musculoskeletal: no edema, pulses present, edema present Dx/Plan - Plan 1) dheeraj possible hepatorenal syndrome vs NASID vs ATN * 2) Acute metabolic encephalopathy * 3) lowr back pain * 4) elevated lft's * * * plan: pt's urine output 2L,creatinine is improving slowly. pt is on octreotide drip, pt on ursodiol. will increase lactulose to tid. pt is having flatulence. pt has sever pain to her lower back. Did try to get pt up but she had too much pain. will get MRI lumbar for evaluation. Hesitant to give pt too much pain meds or anti spasms to avoid over sedation. pt's bili is still high. * * 5/3 blood pressure meds added, also cholestyramine added for her itching. MRI lumbar indicated foramina narrowing at multiple levels. pt has no weakness to her lower ext just pain to her lower back. will consider steroids for some antiinflammatory effects * . Review of Systems - Review of Systems ENT: negative: Ear Pain, Ear Discharge, Nose Pain, Nose Discharge, Nose Congestion, Mouth Pain, Mouth Swelling, Throat Pain, Throat Swelling, Other Respiratory: negative: Cough, Dry, Shortness of Breath, Hemoptysis, SOB with Excertion, Pleuritic Pain, Sputum, Wheezing Cardiovascular: negative: chest pain, palpitations, orthopnea, paroxysmal nocturnal dyspnea, edema, light headedness, other Gastrointestinal: negative: Nausea, Vomiting, Abdominal Pain, Diarrhea, Constipation, Melena, Hematochezia, Other Genitourinary: negative: Dysuria, Frequency, Incontinence, Hematuria, Retention , Other - Medications/Allergies Allergies/Adverse Reactions: Allergies Allergy/AdvReac Type Severity Reaction Status Date / Time No Known Drug Allergies Allergy Verified 01/12/17 12:39 Medications: Current Medications Carvedilol (Coreg) 25 mg PO BID-[facility] Last Admin: 02/25/18 08:59 Dose: 25 mg Cholestyramine Resin (Questran Light) 4 gm PO 1000,2200 [facility] Last Admin: 02/25/18 13:04 Dose: 4 gm Clonidine (Catapres) 0.1 mg PO Q4H PRN PRN Reason: Systolic BP > 180 Last Admin: 02/25/18 05:05 Dose: 0.1 mg Dextrose/Water (Dextrose 50%) 25 gm SLOW IVP PRN PRN PRN Reason: Hypoglycemia Diphenhydramine HCl (Benadryl) 25 mg PO Q8H PRN PRN Reason: Itching & Insomnia Last Admin: 02/25/18 13:04 Dose: 25 mg Glucagon (Glucagon) 1 mg IM PRN PRN PRN Reason: Hypoglycemia Hydralazine HCl (Apresoline) 25 mg PO TID [facility] Last Admin: 02/25/18 08:58 Dose: 25 mg Dextrose/Water (D5w) 1,000 mls @ 0 mls/hr IV .Q0M PRN; As Directed PRN Reason: Hypoglycemia Octreotide Acetate 1,250 mcg/ (Sodium Chloride) 251.25 mls @ 10.05 mls/hr IVPB INF DARIA PRN Reason: 50 MCG/HR Last Admin: 02/24/18 17:54 Dose: 251.25 mls Insulin Human Lispro (Humalog) 0 units SC .MILD SLIDING SCALE PRN PRN Reason: Mild Correctional Scale Last Admin: 02/25/18 11:39 Dose: 3 unit Labetalol HCl (Normodyne) 10 mg SLOW IVP Q4H PRN PRN Reason: Systolic BP > 180 Lactulose (Lactulose) 30 gm PO TID [facility] Last Admin: 02/25/18 08:57 Dose: 30 gm Lidocaine (Lidoderm 5% Patch) 1 patch TD DAILY [facility] Last Admin: 02/25/18 08:59 Dose: 1 patch Miscellaneous Medication (Lidocaine Patch Removal) 1 each TOP QPM [facility] Last Admin: 02/24/18 21:25 Dose: 1 each Nitroglycerin (Nitro-Bid 2% Ointment) 0.5 inch TOP Q8HR PRN PRN Reason: SBP Greater Than 180 Oxycodone HCl (Oxycodone Ir) 5 mg PO Q4H PRN PRN Reason: Pain 7-10 Last Admin: 02/24/18 21:16 Dose: 5 mg Rifaximin (Xifaxan) 550 mg PO BID [facility] Last Admin: 02/25/18 08:59 Dose: 550 mg Sodium Chloride (Flush - Normal Saline) 10 ml IVF Q12HR [facility] Last Admin: 02/25/18 08:59 Dose: 10 ml Sodium Chloride (Flush - Normal Saline) 10 ml IVF PRN PRN PRN Reason: Saline Flush Ursodiol (Actigal) 300 mg PO TID-[facility] Last Admin: 02/25/18 11:40 Dose: 300 mg
[2018-02-25 18:23] VITALS: BMI 31.1
[2018-02-25] MEDS: Octreotide Acetate 1,250 MCG in Sodium Chloride 0.9% 250 ML 250 ML IVPB SCH (20:00)
[2018-02-25] MEDS: Lidocaine Patch Removal TOP SCH (20:03)
--- NOTE | 2018-02-25 20:57 | PRG ---
DATE OF SERVICE: 02/25/2018 SUBJECTIVE: Ms. Chen is feeling pretty well. Back pain continues. There is no abdominal pain. Urine output charted at 1150 mL yesterday and 750 mL so far today. She continues on the octreotide d rip. She is tolerating her diet. She had a couple of bowel movements with the lactulose. No other complaints. PHYSICAL EXAMINATION: VITAL SIGNS: Temperature 97.4, pulse 59, blood pressure 101/55, 98% oxygen saturation on room air. GENERAL: No acute distress. EYES: Scleral icterus persist. MENTAL: She is alert and oriented, seems more mentally clear today even than yesterday. HEART: Regular rate and rhythm. LUNGS: Clear to auscultation bilaterally. ABDOMEN: Soft and nontender. EXTREMITIES: 1+ peripheral edema. LABORATORY STUDIES: Sodium 138, potassium 3.6, BUN down to 72, creatinine down to 3.03, glucose 154. ASSESSMENT AND PLAN: 1. Chronic hepatitis, indeterminate. 2. Cirrhosis, initial decompensation. 3. Hepatic encephalopathy, improved with lactulose and rifaximin. 4. Acute kidney injury. Renal function continues to improve after having started the octreotide dri p. We would continue the octreotide for now. Ursodiol has also been restarted, which we had started her on last year. I would continue her on the ursodiol, the lactulose, and the rifaximin on hospital discharge.
[2018-02-26 05:18] LABS: Anion Gap 16 mmol/L (10-20); BUN (Urea Nitrogen) 73 mg/dL (9.8-20.1); Calc. Creatinine Clearance 30 mL/min (70-130); Calcium 8.9 mg/dL (7.8-10.44); Carbon Dioxide 21 mmol/L (22-29); Chloride 104 mmol/L (98-107); Estimated GFR-MDRD 20; Glucose 140 mg/dL (70-105); Potassium 3.9 mmol/L (3.5-5.1); Sodium 137 mmol/L (136-145)
[2018-02-26 05:35] LABS: Anisocytosis SLIGHT = 6-15 cells (100X) (0-5/hpf); Band 1 % (5-11); Bite Cells SLIGHT = 2-5 cells (100X) (0-1/hpf); Hemoglobin 6.6 g/dL (12.0-16.0); Lymphocytes 15 % (21-51); MDiff Complete? YES; Macrocytosis SLIGHT = 6-15 cells (100X) (0-5/hpf); Mean Corpuscular HGB CONC 32.9 g/dL (32.0-36.0); Mean Corpuscular Hemoglobin 32.7 pg (27.0-31.0); Mean Corpuscular Volume 99.2 fl (81.0-99.0); Mean Platelet Volume 9.9 fL (7.4-10.4); Monocytes 10 % (0-10); Neutrophil 74 % (42-75); PLT Morphology Comment Appears Adequate; Platelet Count 137 thou/uL (130-400); RBC Distribution Width 16.6 % (11.5-14.5); Red Blood Cell (RBC) Count 2.03 mill/uL (4.20-5.40); White Blood Cell (WBC) Count 3.5 thou/uL (4.8-10.8)
[2018-02-26] MEDS: diphenhydrAMINE 25 MG CAP PO PRN ×2 (05:39→21:50)
[2018-02-26] MEDS: Cholestyramine/Aspartame 4 gm Packet PO SCH ×2 (09:17→22:03)
[2018-02-26] MEDS: Lidocaine 5% Patch TD SCH (09:17)
[2018-02-26] MEDS: Ursodiol 300 MG CAP PO SCH ×3 (09:19→17:56)
[2018-02-26] MEDS: Rifaximin 550 MG TAB PO SCH ×2 (09:19→21:51)
[2018-02-26] MEDS: Carvedilol 25 MG TAB PO SCH ×2 (09:19→17:56)
[2018-02-26] MEDS: hydrALAZINE 25 MG TAB PO SCH ×3 (09:19→21:51)
--- NOTE | 2018-02-26 09:20 | PRG ---
DATE OF SERVICE: 02/26/2018 NEPHROLOGY PROGRESS NOTE SUBJECTIVE: Patient was seen and examined at bedside and overnight events noted. Patient denies any shortness of breath or chest pain or palpitation. No history of nausea or vomiting or diarrhea or f ever or chills or cramps. OBJECTIVE: GENERAL: This is a well-built female in no apparent distress. VITAL SIGNS: Temperature 97.5, pulse 60, respiratory rate 16, blood pressure 127/66. HEENT: Atraumatic, normocephalic. Oral mucosa is moist. NECK: Supple. CARDIOVASCULAR: S1, S2 heard. Rate and rhythm regular. RESPIRATORY: Clear to auscultation. GASTROINTESTINAL: Abdomen is soft. MUSCULOSKELETAL: No tenderness. No edema. DERMATOLOGIC: No skin rash. NEUROLOGIC: Alert and awake and oriented x3. No focal neurologic deficits. Moving all the extremiti es. PSYCHIATRIC: Mood and affect normal. LABORATORY DATA: Potassium is 3.9, BUN 73, creatinine is 3.01. ASSESSMENT AND PLAN: 1. Acute kidney injury on chronic kidney disease stage 4. Renal function is stable. 2. Metabolic acidosis, better. 3. Hypothyroidism. 4. Hypertension. 5. Edema. 6. History of cirrhosis. 7. Continue on octreotide. We will monitor renal function and urine output seems to be getting bett er.
[2018-02-26] MEDS: HumaLOG 300 UNITS/3 ML VIAL SC PRN ×2 (11:38→17:55)
[2018-02-26] MEDS ORDERED: Dextrose 5% in Water 1,000 ML IV PRN (11:47)
[2018-02-26] MEDS ORDERED: Dextrose 50% Abboject 50 ML SYRINGE SLOW IVP PRN (11:47)
[2018-02-26 12:23] LABS: ALT (SGPT) 55 U/L (8-55); AST (SGOT) 76 U/L (5-34); Alkaline Phosphatase 244 U/L (40-150); Bilirubin, Total 10.1 mg/dL (0.2-1.2); Protein, Total 6.1 g/dL (6.0-8.3)
[2018-02-26] MEDS: Dexamethasone 4 mg/ml Vial SLOW IVP SCH ×2 (12:58→21:51)
--- NOTE | 2018-02-26 14:44 | PDOC.PN ---
- Subjective Encounter Start Date: 02/26/18 Encounter Start Time: 10:55 Subjective: pt up in bed still has some lower back pain -: pt has no weakness to lower ext - Objective Resuscitation Status: Resuscitation Status FULL:Full Resuscitation Vital Signs & Weight: Vital Signs (12 hours) Temp Pulse Resp BP BP Pulse Ox 02/26/18 11:34 55 L 18 100/59 L 97 02/26/18 09:19 62 127/60 02/26/18 07:25 97.5 F L 62 16 127/60 99 02/26/18 04:00 98.3 F 62 17 111/54 L 94 L Weight Weight 192 lb 4.8 oz I&O: 02/25/18 02/26/18 02/27/18 06:59 06:59 06:59 Intake Total 939.3 932.3 Output Total 750 1050 Balance 189.3 -117.7 Result Diagrams: 02/26/18 04:36 02/26/18 04:37 Additional Labs: Accuchecks 02/26/18 02/26/18 02/25/18 10:35 05:49 20:36 POC Glucose 255 H 144 H 216 H 02/25/18 17:19 POC Glucose 154 H Phys Exam - Physical Examination icteric sclera Neck: no nodes, no JVD, supple, full ROM Respiratory: no wheezing, no rales, no rhonchi, wheezing present, clear to auscultation bilateral Cardiovascular: RRR, no significant murmur, no rub, gallop, irregular Gastrointestinal: soft, non-tender, no distention, positive bowel sounds lower back pain on palpation Dx/Plan - Plan 1) dheeraj possible hepatorenal syndrome vs NASID vs ATN * 2) Acute metabolic encephalopathy * 3) lowr back pain * 4) elevated lft's * 5) dm type 2 * * * plan: pt's urine output 2L,creatinine is improving slowly. pt is on octreotide drip, pt on ursodiol. will increase lactulose to tid. pt is having flatulence. pt has sever pain to her lower back. Did try to get pt up but she had too much pain. will get MRI lumbar for evaluation. Hesitant to give pt too much pain meds or anti spasms to avoid over sedation. pt's bili is still high. * * 5/3 blood pressure meds added, also cholestyramine added for her itching. MRI lumbar indicated foramina narrowing at multiple levels. pt has no weakness to her lower ext just pain to her lower back. will consider steroids for some antiinflammatory effects. * / pt still has pain to her lower back. will start pt on steroids ok with nephrology. physical therapy ordered for pt. creatinine continues to improve. total bili still elevated. will add low dose levemir for anticipated high sugars since steroids have been added. will also increase her ss to high. Review of Systems - Review of Systems Eyes: negative: Pain, Vision Change, Conjunctivae Inflammation, Eyelid Inflammation, Redness, Other ENT: negative: Ear Pain, Ear Discharge, Nose Pain, Nose Discharge, Nose Congestion, Mouth Pain, Mouth Swelling, Throat Pain, Throat Swelling, Other Respiratory: negative: Cough, Dry, Shortness of Breath, Hemoptysis, SOB with Excertion, Pleuritic Pain, Sputum, Wheezing Cardiovascular: negative: chest pain, palpitations, orthopnea, paroxysmal nocturnal dyspnea, edema, light headedness, other Musculoskeletal: Back Pain - Medications/Allergies Allergies/Adverse Reactions: Allergies Allergy/AdvReac Type Severity Reaction Status Date / Time No Known Drug Allergies Allergy Verified 01/12/17 12:39 Medications: Current Medications Carvedilol (Coreg) 25 mg PO BID-[facility] Last Admin: 02/26/18 09:19 Dose: 25 mg Cholestyramine Resin (Questran Light) 4 gm PO 1000,2200 [facility] Last Admin: 02/26/18 09:17 Dose: 4 gm Clonidine (Catapres) 0.1 mg PO Q4H PRN PRN Reason: Systolic BP > 180 Last Admin: 02/25/18 05:05 Dose: 0.1 mg Dexamethasone (Decadron) 4 mg SLOW IVP 0500,1300,2100 [facility] Last Admin: 02/26/18 12:58 Dose: 4 mg Dextrose/Water (Dextrose 50%) 25 gm SLOW IVP PRN PRN PRN Reason: Hypoglycemia Diphenhydramine HCl (Benadryl) 25 mg PO Q8H PRN PRN Reason: Itching & Insomnia Last Admin: 02/26/18 05:39 Dose: 25 mg Glucagon (Glucagon) 1 mg IM PRN PRN PRN Reason: Hypoglycemia Hydralazine HCl (Apresoline) 25 mg PO TID [facility] Last Admin: 02/26/18 09:19 Dose: 25 mg Octreotide Acetate 1,250 mcg/ (Sodium Chloride) 251.25 mls @ 10.05 mls/hr IVPB INF [facility] PRN Reason: 50 MCG/HR Last Admin: 02/25/18 20:00 Dose: 251.25 mls Dextrose/Water (D5w) 1,000 mls @ 0 mls/hr IV .Q0M PRN; As Directed PRN Reason: Hypoglycemia Insulin Detemir 5 units/ (Miscellaneous Medication) 0.05 mls @ 0 mls/hr SC HS [facility] Insulin Human Lispro (Humalog) 0 units SC .AGGRESSIVE SLIDING PRN PRN Reason: Aggressive Correctional Scale Labetalol HCl (Normodyne) 10 mg SLOW IVP Q4H PRN PRN Reason: Systolic BP > 180 Lactulose (Lactulose) 30 gm PO TID [facility] Last Admin: 02/26/18 09:17 Dose: 30 gm Lidocaine (Lidoderm 5% Patch) 1 patch TD DAILY [facility] Last Admin: 02/26/18 09:17 Dose: 1 patch Miscellaneous Medication (Lidocaine Patch Removal) 1 each TOP QPM [facility] Last Admin: 02/25/18 20:03 Dose: 1 each Nitroglycerin (Nitro-Bid 2% Ointment) 0.5 inch TOP Q8HR PRN PRN Reason: SBP Greater Than 180 Oxycodone HCl (Oxycodone Ir) 5 mg PO Q4H PRN PRN Reason: Pain 7-10 Last Admin: 02/24/18 21:16 Dose: 5 mg Rifaximin (Xifaxan) 550 mg PO BID [facility] Last Admin: 02/26/18 09:19 Dose: 550 mg Sodium Chloride (Flush - Normal Saline) 10 ml IVF Q12HR [facility] Last Admin: 02/26/18 09:17 Dose: 10 ml Sodium Chloride (Flush - Normal Saline) 10 ml IVF PRN PRN PRN Reason: Saline Flush Ursodiol (Actigal) 300 mg PO TID-[facility] Last Admin: 02/26/18 11:38 Dose: 300 mg
--- NOTE | 2018-02-26 15:26 | PRG ---
DATE OF SERVICE: 02/26/2018 GI INPATIENT DAILY PROGRESS NOTE SUBJECTIVE: Ms. Chen is feeling about the same. No abdominal pain, nausea, or vomiting. She is tolerating her diet. She continues to complain of back pain. OBJECTIVE: VITAL SIGNS: Temperature 97.5, pulse 55, blood pressure 100/59, 97% oxygen saturation on room air. GENERAL: No acute distress. HEART: Regular rate and rhythm. LUNGS: Clear to auscultation bilaterally. ABDOMEN: Soft and nontender to palpation. EXTREMITIES: 1+ bilateral lower extremity edema. LABORATORY DATA: Hemoglobin declined to 6.6, WBC 3.5, MCV elevated to 99.2, platelets 137. Sodium 1 37, potassium 3.9, BUN 73, creatinine stable at 3.01, glucose 255, total bilirubin down to 10.1, dire ct bilirubin 8.0, alkaline phosphatase 244, AST 76, and ALT 55. ASSESSMENT AND PLAN: 1. Chronic hepatitis, indeterminate. 2. Cirrhosis, initial decompensation. 3. Hepatic encephalopathy, improved. 4. Acute kidney injury. 5. Anemia, macrocytic. The patient's renal function appears stable. She is on octreotide. Nephrol hilario is following. She needs to avoid all nonsteroidal anti-inflammatory drugs going forward. Contin ue lactulose and rifaximin as well as ursodiol. With regard to the anemia, there has been no evidence of overt gastrointestinal bleeding. This is a macrocytic anemia. We will go ahead and order iron studies as well as B12 and folic acid levels. Dr. Lane is covering for Gastroenterology over the weekend.
[2018-02-26 15:52] LABS: Iron 66 ug/dL (50-170); Iron Binding Capacity, Total 184 mcg/dL (265-497)
[2018-02-26 16:24] LABS: Folate (Folic Acid) 10.4 ng/mL (7.0-31.4)
[2018-02-26] MEDS ORDERED: Insulin Detemir 100 UNITS/ML 5 UNITS in Pre-Filled Syringe 1 EACH SC SCH (21:00)
[2018-02-26] MEDS: Lidocaine Patch Removal TOP SCH (21:53)
[2018-02-26] MEDS: oxyCODONE 5 MG TAB PO PRN (22:11)
--- NOTE | 2018-02-26 22:52 | RAD ---
SEMIUPRIGHT PORTABLE CHEST ONE VIEW: 02/26/18 HISTORY: 52-year-old female with history of shortness of breath. Minimal cardiomegaly. Mild bilateral vascular congestion but no confluent pneumonia, overt edema or s ignificant pleural effusion. IMPRESSION: Cardiomegaly with mild vascular congestion without confluent pneumonia, overt edema or other acute pr ocess. POS: [facility]
[2018-02-27] MEDS: Octreotide Acetate 1,250 MCG in Sodium Chloride 0.9% 250 ML 250 ML IVPB SCH (01:14)
[2018-02-27] MEDS: Dexamethasone 4 mg/ml Vial SLOW IVP SCH ×2 (05:42→12:54)
[2018-02-27] MEDS: oxyCODONE 5 MG TAB PO PRN ×2 (05:47→20:40)
[2018-02-27] MEDS: Ursodiol 300 MG CAP PO SCH ×3 (08:47→17:51)
[2018-02-27] MEDS: HumaLOG 300 UNITS/3 ML VIAL SC PRN (08:47)
[2018-02-27] MEDS: diphenhydrAMINE 25 MG CAP PO PRN (08:47)
[2018-02-27] MEDS: Rifaximin 550 MG TAB PO SCH ×2 (08:47→20:41)
[2018-02-27] MEDS: Carvedilol 25 MG TAB PO SCH (08:47)
[2018-02-27] MEDS: hydrALAZINE 25 MG TAB PO SCH ×3 (08:47→20:42)
[2018-02-27] MEDS: Lidocaine 5% Patch TD SCH (08:48)
[2018-02-27 10:16] LABS: Hemoglobin 8.5 g/dL (12.0-16.0); Mean Corpuscular HGB CONC 33.8 g/dL (32.0-36.0); Mean Corpuscular Hemoglobin 33.6 pg (27.0-31.0); Mean Corpuscular Volume 99.5 fl (81.0-99.0); Mean Platelet Volume 9.4 fL (7.4-10.4); Platelet Count 146 thou/uL (130-400); RBC Distribution Width 16.7 % (11.5-14.5); Red Blood Cell (RBC) Count 2.53 mill/uL (4.20-5.40)
[2018-02-27 10:37] LABS: Anion Gap 14 mmol/L (10-20); BUN (Urea Nitrogen) 80 mg/dL (9.8-20.1); Calc. Creatinine Clearance 25 mL/min (70-130); Calcium 9.1 mg/dL (7.8-10.44); Carbon Dioxide 21 mmol/L (22-29); Chloride 102 mmol/L (98-107); Estimated GFR-MDRD 16; Glucose 274 mg/dL (70-105); Potassium 4.5 mmol/L (3.5-5.1); Sodium 132 mmol/L (136-145)
[2018-02-27 10:59] LABS: Lymphocytes 6 % (21-51); MDiff Complete? YES; Monocytes 1 % (0-10); Neutrophil 93 % (42-75)
[2018-02-27] MEDS: Cholestyramine/Aspartame 4 gm Packet PO SCH ×2 (11:27→23:12)
[2018-02-27] MEDS ORDERED: Acetaminophen 325 MG TAB PO SCH (12:00)
[2018-02-27] MEDS ORDERED: Albumin 25% 25 GM/100 ML BOT IVPB SCH (12:45)
--- NOTE | 2018-02-27 13:59 | PRG ---
DATE OF SERVICE: 02/27/2018. SUBJECTIVE: Patient was seen and examined at bedside and overnight events noted. Patient denies any shortness of breath or chest pain or palpitation. No history of nausea or vomiting or diarrhea or f ever or chills or cramps. OBJECTIVE: GENERAL: This is a well-built female in no apparent distress. VITAL SIGNS: Temperature 98.7, pulse 60, respiration 18, blood pressure 131/60. HEENT: Atraumatic, normocephalic. Oral mucosa is moist. NECK: Supple. CARDIOVASCULAR: S1, S2 heard. Rate and rhythm regular. RESPIRATORY: Clear to auscultation. GASTROINTESTINAL: Abdomen is soft, distended. MUSCULOSKELETAL: No tenderness, 1+ edema. DERMATOLOGIC: No skin rash. NEUROLOGIC: Alert and awake and oriented x3. No focal neurologic deficits. Moving all the extremit ies. PSYCHIATRIC: Mood and affect normal. LABORATORY DATA: Potassium is 4.5, BUN is 80, creatinine is 3.6. ASSESSMENT AND PLAN: 1. Acute kidney injury on chronic kidney disease stage 4 with worsening creatinine today. I will tr y albumin. Follow up with GI. Continue octreotide, probably add midodrine. 2. Pyuria. We will check a urine culture. 3. Metabolic acidosis, stable, bicarbonate stopped. 4. Hypertension. 5. Edema. 6. History of cirrhosis. 7. Hyponatremia. 8. Anemia, rule out bleed. Follow up with GI. 9. We will add albumin, consider midodrine. 10. Continue supportive care. No acute indication for dialysis. We will follow.
--- NOTE | 2018-02-27 14:00 | PDOC.PN ---
- Subjective Encounter Start Date: 02/27/18 Encounter Start Time: 09:45 Subjective: pt up in bed still complains of some lower back pain -: she denies any weakness, numbness or tingling to her lowe ext - Objective Resuscitation Status: Resuscitation Status FULL:Full Resuscitation Vital Signs & Weight: Vital Signs (12 hours) Temp Pulse Resp BP BP Pulse Ox 02/27/18 11:25 48 L 20 109/59 L 95 02/27/18 08:47 58 L 116/59 L 02/27/18 07:12 97.3 F L 58 L 18 116/59 L 97 02/27/18 06:01 97.4 F L 56 L 18 121/60 98 Weight Weight 194 lb 11.2 oz Most Recent Monitor Data Heart Rate from ECG 59 NIBP 122/58 I&O: 02/26/18 02/27/18 02/28/18 06:59 06:59 06:59 Intake Total 932.3 1627 Output Total 1050 575 Balance -117.7 1052 Result Diagrams: 02/27/18 10:00 02/27/18 10:00 Additional Labs: Accuchecks 02/27/18 02/27/18 02/26/18 10:42 05:46 20:52 POC Glucose 232 H 179 H 311 H 02/26/18 16:13 POC Glucose 183 H Phys Exam - Physical Examination icteric sclera Neck: no nodes, no JVD, supple, full ROM Respiratory: no wheezing, no rales, no rhonchi, wheezing present, clear to auscultation bilateral Cardiovascular: RRR, no significant murmur, no rub, gallop, irregular Gastrointestinal: soft, non-tender, no distention, positive bowel sounds Musculoskeletal: no edema, pulses present, edema present Dx/Plan - Plan 1) dheeraj possible hepatorenal syndrome vs NASID vs ATN * 2) Acute metabolic encephalopathy * 3) lowr back pain * 4) elevated lft's * 5) dm type 2 * 6) bradycardia * * * plan: pt's urine output 2L,creatinine is improving slowly. pt is on octreotide drip, pt on ursodiol. will increase lactulose to tid. pt is having flatulence. pt has sever pain to her lower back. Did try to get pt up but she had too much pain. will get MRI lumbar for evaluation. Hesitant to give pt too much pain meds or anti spasms to avoid over sedation. pt's bili is still high. * * 5/ blood pressure meds added, also cholestyramine added for her itching. MRI lumbar indicated foramina narrowing at multiple levels. pt has no weakness to her lower ext just pain to her lower back. will consider steroids for some antiinflammatory effects. * / pt still has pain to her lower back. will start pt on steroids ok with nephrology. physical therapy ordered for pt. creatinine continues to improve. total bili still elevated. will add low dose levemir for anticipated high sugars since steroids have been added. will also increase her ss to high. * 02/27 will change decadron to medrol dose. pt was able to get up and sit at the side of the bed. she was not able to do so in the past. will stop her coreg for her bradycardia. pt's creatinine has increased. spoke with nephro who will start some albumin. will increase her dose of levemir for now. continue lactulose/rifaximin/ursodiol. PT consulted. * . Review of Systems - Review of Systems Eyes: negative: Pain, Vision Change, Conjunctivae Inflammation, Eyelid Inflammation, Redness, Other ENT: negative: Ear Pain, Ear Discharge, Nose Pain, Nose Discharge, Nose Congestion, Mouth Pain, Mouth Swelling, Throat Pain, Throat Swelling, Other Cardiovascular: negative: chest pain, palpitations, orthopnea, paroxysmal nocturnal dyspnea, edema, light headedness, other Gastrointestinal: negative: Nausea, Vomiting, Abdominal Pain, Diarrhea, Constipation, Melena, Hematochezia, Other Genitourinary: negative: Dysuria, Frequency, Incontinence, Hematuria, Retention , Other Musculoskeletal: Back Pain - Medications/Allergies Allergies/Adverse Reactions: Allergies Allergy/AdvReac Type Severity Reaction Status Date / Time No Known Drug Allergies Allergy Verified 01/12/17 12:39 Medications: Current Medications Albumin Human (Albumin 25%) 25 gm IVPB Q6HR [facility] Stop: 03/01/18 06:01 Albumin Human (Albumin 25%) 25 gm IVPB NOW [facility] Stop: 02/27/18 15:00 Last Admin: 02/27/18 12:54 Dose: 25 gm Cholestyramine Resin (Questran Light) 4 gm PO 1000,2200 [facility] Last Admin: 02/27/18 11:27 Dose: Not Given Clonidine (Catapres) 0.1 mg PO Q4H PRN PRN Reason: Systolic BP > 180 Last Admin: 02/25/18 05:05 Dose: 0.1 mg Dextrose/Water (Dextrose 50%) 25 gm SLOW IVP PRN PRN PRN Reason: Hypoglycemia Diphenhydramine HCl (Benadryl) 25 mg PO Q8H PRN PRN Reason: Itching & Insomnia Last Admin: 02/27/18 08:47 Dose: 25 mg Famotidine (Pepcid) 20 mg PO 2100 [facility] Glucagon (Glucagon) 1 mg IM PRN PRN PRN Reason: Hypoglycemia Hydralazine HCl (Apresoline) 25 mg PO TID [facility] Last Admin: 02/27/18 08:47 Dose: 25 mg Octreotide Acetate 1,250 mcg/ (Sodium Chloride) 251.25 mls @ 10.05 mls/hr IVPB INF [facility] PRN Reason: 50 MCG/HR Last Admin: 02/27/18 01:14 Dose: 251.25 mls Dextrose/Water (D5w) 1,000 mls @ 0 mls/hr IV .Q0M PRN; As Directed PRN Reason: Hypoglycemia Insulin Detemir 8 units/ (Miscellaneous Medication) 0.08 mls @ 0 mls/hr SC HS [facility] Insulin Human Lispro (Humalog) 0 units SC .AGGRESSIVE SLIDING PRN PRN Reason: Aggressive Correctional Scale Last Admin: 02/27/18 08:47 Dose: 3 unit Labetalol HCl (Normodyne) 10 mg SLOW IVP Q4H PRN PRN Reason: Systolic BP > 180 Lactulose (Lactulose) 30 gm PO TID [facility] Last Admin: 02/27/18 08:44 Dose: 30 gm Lidocaine (Lidoderm 5% Patch) 1 patch TD DAILY [facility] Last Admin: 02/27/18 08:48 Dose: Not Given Methylprednisolone (Medrol) 4 mg PO [facility] Miscellaneous Medication (Lidocaine Patch Removal) 1 each TOP QPM [facility] Last Admin: 02/26/18 21:53 Dose: 1 each Oxycodone HCl (Oxycodone Ir) 5 mg PO Q4H PRN PRN Reason: Pain 7-10 Last Admin: 02/27/18 05:47 Dose: 5 mg Rifaximin (Xifaxan) 550 mg PO BID [facility] Last Admin: 02/27/18 08:47 Dose: 550 mg Sodium Chloride (Flush - Normal Saline) 10 ml IVF Q12HR [facility] Last Admin: 02/27/18 08:46 Dose: 10 ml Sodium Chloride (Flush - Normal Saline) 10 ml IVF PRN PRN PRN Reason: Saline Flush Ursodiol (Actigal) 300 mg PO TID-WM [facility] Last Admin: 02/27/18 11:44 Dose: Not Given
[2018-02-27] MEDS ORDERED: Famotidine 20 MG TAB PO SCH (14:07)
[2018-02-27] MEDS ORDERED: Lidocaine 2% Viscous Solution 10 ML, Aluminum & Magnesium Hydroxide 30 ML SSW SCH (16:30)
[2018-02-27] MEDS ORDERED: ALPRAZolam 0.25 MG TAB PO SCH (16:30)
[2018-02-27] MEDS: Albumin 25% 25 GM/100 ML BOT IVPB SCH (18:06)
[2018-02-27] MEDS ORDERED: Furosemide 100 MG/10 ML VIAL SLOW IVP SCH (18:30)
[2018-02-27] MEDS: Lidocaine Patch Removal TOP SCH (20:48)
[2018-02-27] MEDS ORDERED: Insulin Detemir 100 UNITS/ML 8 UNITS in Pre-Filled Syringe 1 EACH SC SCH (21:00)
[2018-02-28] MEDS: Albumin 25% 25 GM/100 ML BOT IVPB SCH (00:30)
[2018-02-28 02:18] LABS: INR-International Normal Ratio 1.2; PTT 28.7 SEC (22.9-36.1); Prothrombin Time 15.8 SEC (12.0-14.7)
[2018-02-28 02:19] LABS: Troponin I 1.088 ng/mL (< 0.028)
[2018-02-28 02:20] LABS: ALT (SGPT) 44 U/L (8-55); AST (SGOT) 53 U/L (5-34); Albumin 3.8 g/dL (3.5-5.0); Alkaline Phosphatase 217 U/L (40-150); Anion Gap 17 mmol/L (10-20); BUN (Urea Nitrogen) 87 mg/dL (9.8-20.1); Bilirubin, Total 9.2 mg/dL (0.2-1.2); Calc. Creatinine Clearance 23 mL/min (70-130); Calcium 9.5 mg/dL (7.8-10.44); Carbon Dioxide 18 mmol/L (22-29); Chloride 99 mmol/L (98-107); Estimated GFR-MDRD 14; Globulin 3.3 g/dL (2.4-3.5); Glucose 219 mg/dL (70-105); Potassium 4.3 mmol/L (3.5-5.1); Protein, Total 7.1 g/dL (6.0-8.3); Sodium 130 mmol/L (136-145)
[2018-02-28 02:57] VITALS: BP 116/58; TEMP 98.2
--- NOTE | 2018-02-28 03:24 | PDOC.EVN ---
Event Note - Event Note Event Note: Patient noted to have developed abnormal rhythm on tele. She complained of some epigastric discomfort and back pain. 12 lead EKG revealed inferior STEMI. STAT troponin 1.088 and creatinind > 4. Dr Douglas called and reviewed EKG. Patient is now chest pain free and sleeping. Dr. Douglas recommends ordering a STAT ECHO and will reassess patient.
[2018-02-28 04:27] LABS: ALT (SGPT) 44 U/L (8-55); AST (SGOT) 57 U/L (5-34); Albumin 3.7 g/dL (3.5-5.0); Alkaline Phosphatase 232 U/L (40-150); Anion Gap 23 mmol/L (10-20); BUN (Urea Nitrogen) 82 mg/dL (9.8-20.1); Calc. Creatinine Clearance 22 mL/min (70-130); Calcium 9.6 mg/dL (7.8-10.44); Carbon Dioxide 14 mmol/L (22-29); Chloride 100 mmol/L (98-107); Estimated GFR-MDRD 14; Globulin 3.2 g/dL (2.4-3.5); Glucose 194 mg/dL (70-105); Magnesium 2.8 mg/dL (1.6-2.6); Protein, Total 6.9 g/dL (6.0-8.3); Sodium 132 mmol/L (136-145)
[2018-02-28 04:40] LABS: Troponin I 3.091 ng/mL (< 0.028)
[2018-02-28 04:45] LABS: Anisocytosis SLIGHT = 6-15 cells (100X) (0-5/hpf); Band 5 % (5-11); Hemoglobin 8.5 g/dL (12.0-16.0); Lymphocytes 25 % (21-51); MDiff Complete? YES; Macrocytosis SLIGHT = 6-15 cells (100X) (0-5/hpf); Mean Corpuscular HGB CONC 32.6 g/dL (32.0-36.0); Mean Corpuscular Hemoglobin 32.7 pg (27.0-31.0); Metamyelocyte 3 % (0-0); Monocytes 9 % (0-10); Neutrophil 56 % (42-75); Nucleated RBC 1 % (0); PLT Morphology Comment Appears Adequate; Platelet Count 153 thou/uL (130-400); Reactive Lymphocytes 1 % (0-10); Red Blood Cell (RBC) Count 2.58 mill/uL (4.20-5.40); White Blood Cell (WBC) Count 6.9 thou/uL (4.8-10.8)
--- NOTE | 2018-02-28 04:58 | PDOC.EVN ---
Event Note - Event Note Event Note: Code Andrea called at [id number]. Family medicine team arrived at bedside as chest compressions were started. Patient was admitted to [facility] for acute kidney injury and metabolic encephalopathy. Per nursing patient had had some episodes of v. tach earlier in the night and a stat echo was ordered. Patient had elevated troponin. Epi was given. Initial pulse check was pulseless. CBC, CMP, mag, and troponin were ordered. Intubation was achieved via glidescope by Dr. Quezada. At each pulse check, patient was found to be in pulseless v. fib. Defibrillation was attempted x3. 5 amps of epinephrine, 2 doses of amiodarone, and 2 amps of bicarb were given in total. Patient never achieved pulse or spontaneous respirations. At 0426, after more than 30 minutes of resuscitation with no improvement, sonographic confirmation of absence of cardiac activity, and no breath sounds on exam, resuscitation was stopped and patient was pronounced. Dr. Douglas was present throughout the code and was in agreement with cessation of resuscitation. He notified family. Please refer to record by nursing and signed by me for full details.
[2018-02-28] MEDS ORDERED: EPINEPHrine 1 MG/10 ML Abboject SYRINGE ONE (05:00)
[2018-02-28] MEDS ORDERED: Calcium Chloride 1 GM/10 ML Abboject SYRINGE ONE (05:00)
[2018-02-28] MEDS ORDERED: methylPREDNISolone 4 mg Tablet PO SCH (08:00)
[2018-02-28] MEDS ORDERED: Famotidine 20 MG TAB PO SCH (21:00)
--- NOTE | 2018-03-01 12:44 | EKG ---
Test Reason : Blood Pressure : / mmHG Vent. Rate : 040 BPM Atrial Rate : 040 BPM P-R Int : 000 ms QRS Dur : 094 ms QT Int : 536 ms P-R-T Axes : 071 049 096 degrees QTc Int : 436 ms Age and gender specific ECG analysis Marked sinus bradycardia with 1st degree A-V block Low voltage QRS ST elevation consider inferior injury or acute infarct ACUTE TX / STEMI Consider right ventricular involvement in acute inferior infarct Abnormal ECG When compared with ECG of 22-FEB-2018 05:05, (Unconfirmed) Significant changes have occurred Confirmed by DR. Dejah PARSON ([id number]) on 03/01/2018 12:44:20 PM Referred By: SHANNAN Confirmed By:DR. Dejah PARSON
[2018-03-01 18:09] LABS: Cytoplasmic (C-ANCA) <1:20 titer (Neg:<1:20); Myeloperoxidase AutoAbs <9.0 U/mL (0.0-9.0); Perinuclear (P-ANCA) <1:20 titer (Neg:<1:20); Proteinase-3 AutoAbs Less than 3.5 U/mL (0.0-3.5)
--- NOTE | 2018-03-25 11:16 | DIS ---
DATE OF ADMISSION: 02/22/2018 DATE OF : 02/28/2018 SUMMARY DISCHARGE DIAGNOSES: 1. Cardiac arrest. 2. Most likely myocardial infarction. 3. Hepatorenal syndrome. 4. Autoimmune liver disease. 5. Acute kidney injury on chronic kidney disease. 6. Anemia. 7. Obesity. HOSPITAL COURSE: Patient was initially transferred from an outside hospital for worsening kidney inj ury. Patient stated that she had pulled a muscle at work and was prescribed ibuprofen which she was taking very frequently. The patient does have a history of baseline autoimmune liver disease. The p atient at this time was initially treated with fluids with concerns for possible prerenal cause of he r AMMY. Nephrology and GI was consulted. Patient also was started on octreotide drip and also had wo rsening LFTs. Patient's creatinine initially continued to improve; however, started getting worse. She also was complaining of significant lower back pain for which initially x-rays of lumbar spine an d hip x-ray did not show any acute abnormalities; however, a lumbar spine MRI indicated patient has s ignificant foraminal narrowing at multiple levels and varying degrees of central canal stenosis also especially in L3-L4 and L4-L5. Patient also had an echocardiogram which indicated an EF of 65%-70%, severe concentric left ventricular hypertrophy and moderately elevated pulmonary artery pressure. Th e patient was put on steroids for her lower back pain since unable to prescribe any ibuprofen given h er treatment for hepatorenal syndrome. However, overnight, she started complaining of vague symptoms of epigastric pain at this time. An EKG was checked and troponins were checked. She appeared to lau ve changes in her EKG and positive troponins. The patient at that time this is all per records. Car diology was called in regards to the changes in the EKG and the positive troponins. Patient, however , went into ventricular tachycardia arrest and at this time, a code blue was called. Patient was res uscitated; however, unsuccessful and patient on 02/28/2018.
== END 2018-02-28 07:42 | disposition expired | DRG 441 ==
LOC: ERS 02:31 → ERHOLD 03:50 → 2NO 12:37
PROVIDERS: ADMIT Internal Medicine; ATTEND Internal Medicine
PROC: 30233N1 Transfusion of Nonautologous Red Blood Cells into Peripheral Vein, Percutaneous Approach (ICD-10-PCS; principal; 2018-02-26)
DX: K76.7 Hepatorenal syndrome (principal); G93.41 Metabolic encephalopathy; I21.19 ST elevation (STEMI) myocardial infarction involving other coronary artery of inferior wall; N17.9 Acute kidney failure, unspecified; I47.2 Ventricular tachycardia; N39.0 Urinary tract infection, site not specified; E87.2 Acidosis; E87.1 Hypo-osmolality and hyponatremia; N18.4 Chronic kidney disease, stage 4 (severe); R79.89 Other specified abnormal findings of blood chemistry; I49.01 Ventricular fibrillation; F17.210 Nicotine dependence, cigarettes, uncomplicated; K74.60 Unspecified cirrhosis of liver; D63.1 Anemia in chronic kidney disease; K73.9 Chronic hepatitis, unspecified; K72.90 Hepatic failure, unspecified without coma; E03.9 Hypothyroidism, unspecified; I12.9 Hypertensive chronic kidney disease with stage 1 through stage 4 chronic kidney disease, or unspecified chronic kidney disease; E11.22 Type 2 diabetes mellitus with diabetic chronic kidney disease; E66.9 Obesity, unspecified; I46.2 Cardiac arrest due to underlying cardiac condition; Z68.31 Body mass index [BMI] 31.0-31.9, adult
CPT/HCPCS: 36415; 36416; 36430; 71045; 72100; 72148; 73522; 74018; 76700; 76770; 80048; 80053; 80076; 81003; 81015; 82010; 82140; 82550; 82570; 82607; 82728; 82746; 82805; 83516; 83520; 83540; 83550; 83605; 83735; 83880; 84100; 84156; 84300; 84484; 84540; 85007; 85025; 85027; 85610; 85730; 86038; 86225; 86256; 86850; 86900; 86901; 92950; 93005; 93010; 93306; 94640; 94760; 96361; 96365; 96372; 99406; A4216; G8978-GP-CM; G8979-GP-CK; J0171; J0282; J0360; J1100; J1644; J1815; J1940; J2270; J2354; J7050; J7070; J7620; P9016; P9047